=== PATIENT | female | born 1965 | race American Indian/Alaskan Native ===

== ENCOUNTER 2017-10-03 00:01 | Emergency (ER) | payer OTHER ==
[2017-10-03 01:12] VITALS: BP 126/79
--- NOTE | 2017-10-03 01:47 | XRay Report ---
FINAL REPORT EXAM: XR CHEST ROUTINE 2V HISTORY: Shortness of breath TECHNIQUE: PA and lateral views of the chest were submitted. FINDINGS: The heart is mildly enlarged. The lungs are not congested. There are no localized infiltrates or effusions. There are increased markings in both lower lobes secondary to bibasilar scarring versus subsegmental atelectasis. The skeletal structures are unremarkable. IMPRESSION: Bibasilar subsegmental atelectasis versus scarring. No acute infiltrates or congestion.
[2017-10-03 08:09] LABS: Bacteria,Urine 1+ /HPF (Negative); Bilirubin,Urine NEG (Negative); Blood,Urine SM (Negative); Color,Urine Yellow (Yellow); Mucus,Urine FEW /HPF; Nitrite,Urine NEG (Negative); Protein,Urine <15 mg/dL mg/dL (Negative); Urobilinogen,Urine < 2.0 mg/dL (<2.0)
[2017-10-03] MEDS ORDERED: ROBITUSSIN PO ONE (11:06)
--- NOTE | 2017-10-03 11:13 | Emergency Department Report ---
Minor Respiratory - HPI Chief Complaint: Upper Respiratory Infection Stated Complaint: URI SX Time Seen by Provider: 10/03/17 10:43 Duration: 5 Days Severity: moderate Minor Respiratory: Yes Able to Tolerate Fluids, Yes Cough, Yes Shortness of Breath, No Rhinorrhea, No Sore Throat, No Ear Pain, No Sick Contacts, No Hemoptysis, No Chest Pain, No Fever Other History: Pt is a 52-year-old female with no prior medical history presents to ED complaining of intermittent cough 6 days. Patient states on Friday she started to experience shortness of breath that has gotten a bit concerning. Patient denies chest pain but states she has pain in the back of her chest. She denies fever /chills/ vomiting/ dizziness. ED Review of Systems ROS: Stated complaint: URI SX Other details as noted in HPI Constitutional: denies: chills, fever Eyes: denies: eye pain, eye discharge, vision change ENT: denies: ear pain, throat pain Respiratory: cough, shortness of breath. denies: wheezing Cardiovascular: denies: chest pain, palpitations Endocrine: no symptoms reported Gastrointestinal: denies: abdominal pain, nausea, diarrhea Genitourinary: denies: urgency, dysuria, discharge Musculoskeletal: denies: back pain, joint swelling, arthralgia Skin: denies: rash, lesions Neurological: denies: headache, weakness, paresthesias Psychiatric: denies: anxiety, depression Hematological/Lymphatic: denies: easy bleeding, easy bruising ED Past Medical Hx - Past Medical History Previous Medical History?: No - Surgical History Past Surgical History?: No - Social History Smoking Status: Never Smoker Substance Use Type: None - Medications Home Medications: Home Medications Medication Instructions Recorded Confirmed Last Taken Type ALBUTEROL Inhaler [ProAir HFA 2 puff IH QID PRN #1 pump 10/03/17 Unknown Rx Inhaler] Benzonatate [Tessalon Perles] 100 mg PO Q8HR #24 capsule 10/03/17 Unknown Rx Minor Respiratory Exam - Exam General: Vital signs noted. No distress. Alert and acting appropriately. HEENT: Yes Moist Mucous Membranes, No Pharyngeal Erythema, No Pharyngeal Exudates, No Rhinorrhea, No Conjuctival Injection, No Frontal Tenderness, No Maxillary Tenderness Ear: Neither TM Bulge, Neither TM Erythema, Neither EAC Pain, Neither EAC Discharge Neck: Yes Supple, No Adenopathy Lungs: Yes Good Air Exchange, No Wheezes, No Ronchi, No Stridor, No Cough, No Labored Respirations, No Retractions, No Use of Accessory Muscles, No Other Abnormal Lung Sounds Heart: Yes Regular, No Murmur Abdomen: Yes Normal Bowel Sounds, No Tenderness, No Peritoneal Signs Skin: No Rash, No Edema Neurologic: Alert and oriented, no deficits. Musculoskeletal: Unremarkable. ED Course Vital Signs 10/03/17 01:06 Temperature 95.9 F L Pulse Rate 81 Blood Pressure 126/79 O2 Sat by Pulse 96 Oximetry ED Medical Decision Making - Radiology Data Radiology results: report reviewed, image reviewed Fluoro Time In Minutes: FINAL REPORT EXAM: XR CHEST ROUTINE 2V HISTORY: Shortness of breath TECHNIQUE: PA and lateral views of the chest were submitted. FINDINGS: The heart is mildly enlarged. The lungs are not congested. There are no localized infiltrates or effusions. There are increased markings in both lower lobes secondary to bibasilar scarring versus subsegmental atelectasis. The skeletal structures are unremarkable. IMPRESSION: Bibasilar subsegmental atelectasis versus scarring. No acute infiltrates or congestion. Transcribed By: RB Dictated By: CORNELL MCDONALD MD Electronically Authenticated By: CORNELL MCDONALD MD Signed Date/Time: 10/02/172144 - Medical Decision Making 52-year-old female presents with bronchitis ED course: Patient received [facility] ED Chest x-ray ordered, this if she shows subsegmental atelectasis of the lower long. D-dimer ordered, d-dimer was negative. Patient's predicted value for PE is very low until discharge home. Atelectasis possibly due to bronchitis. Excellent I discussed all findings with the patient. Specifically with the discussed the patient to use inhaler as prescribed to help with symptoms as well as cough suppressant. Vital signs are normal. Patient is in no acute or respiratory distress. - Differential Diagnosis 1. PE 2. URI 3. Bronchitis Critical care attestation.: If time is entered above; I have spent that time in minutes in the direct care of this critically ill patient, excluding procedure time. ED Disposition Clinical Impression: Bronchitis Disposition: [id number] TO HOME OR SELFCARE Is pt being admited?: No Does the pt Need Aspirin: No Condition: Stable Instructions: Upper Respiratory Infection (ED), Chronic Bronchitis (ED), Viral Syndrome (ED) Additional Instructions: Make sure to follow up with the primary care physician as discussed. Take all your medications as you've been prescribed. If you have any worsening symptoms or develop new symptoms please return to ED immediately. She started to experience shortness of breath, chest pain or any worsening symptoms return to ED immediately. Prescriptions: ALBUTEROL Inhaler [ProAir HFA Inhaler] 2 puff IH QID PRN #1 pump PRN Reason: Shortness Of Breath Benzonatate [Tessalon Perles] 100 mg PO Q8HR #24 capsule Referrals: PASCUAL LAZAR MD [Primary Care Provider] - 3-5 Days Forms: Work/School Release Form(ED) Time of Disposition: 11:31
== END 2017-10-03 12:41 | disposition home or self-care (01) ==
LOC: ED 00:01
DX: J40 Bronchitis, not specified as acute or chronic (principal)
CPT/HCPCS: 36415; 71046; 81001; 85379; 99283